=== PATIENT | female | born 1995 | race African-American/Black ===

== ENCOUNTER 2020-02-01 09:08 | Emergency (ER) | payer MEDICAID ==
[~2020-02-01] VITALS: Ht 167.6 cm; Wt 92.5 kg
[2020-02-01 09:12] VITALS: BP 124/61
--- NOTE | 2020-02-01 09:17 | NUR ---
PT TAKEN TO BED 7.
[2020-02-01] MEDS ORDERED: KETOROLAC 30 MG/ML VIAL IM STA (09:27)
--- NOTE | 2020-02-01 09:42 | NUR ---
PT COVID AND STREP SWABBED
--- NOTE | 2020-02-01 09:43 | NUR ---
PATIENT PRESENTS TO ED WITH RIGHT SIDED THROAT PAIN RADIATING UP TO RIGHT SIDE OF FACE/EAR . PT STATES PAIN OCCURRED YESTERDAY AFTER WAKING UP FROM [place] AND HAS PROGRESSIVELY GOTTEN WORSE TODAY. DENIES N/V/D; SKIN IS PINK/WARM/DRY; AAOX4 WITH EVEN AND STEADY GAIT; LUNGS CLEAR BL; HR EVEN AND REGULAR; PT DENIES ANY FEVER, CP, SOB, OR COUGH AT THIS TIME; PATIENT STATES PAIN OF 5/10 AT THIS TIME; VSS; PATIENT POSITIONED FOR COMFORT; HOB ELEVATED; BEDRAILS UP X2; BED DOWN. ER MD MADE AWARE OF PT STATUS.
--- NOTE | 2020-02-01 10:39 | NUR ---
PATIENT STATES SHE IS FEELING A DECREASE IN PAIN, PAIN IS 3/10
[2020-02-01 11:03] VITALS: BP 124/61
== END 2020-02-01 11:03 | disposition home or self-care (01) ==
LOC: MED 09:08
DX: J02.9 Acute pharyngitis, unspecified (principal); J45.909 Unspecified asthma, uncomplicated; F12.90 Cannabis use, unspecified, uncomplicated
CPT/HCPCS: 87081; 96372; 99283; J1885; U0003